=== PATIENT | female | born 1985 | race Caucasian/White ===

== ENCOUNTER 2020-08-08 13:44 | Emergency (ER) | payer SELFPAY ==
[~2020-08-08] VITALS: Ht 162.6 cm; Wt 89.1 kg
[2020-08-08 13:50] VITALS: Ht 162.6 cm; Wt 89.1 kg
[2020-08-08 14:28] LABS: BASOPHILS 0.5 % (0-2); EOSINOPHILS 3.4 % (0-7); HEMATOCRIT 42.3 % (36.0-48.0); HEMOGLOBIN 14.2 g/dL (12-16); IMMATURE GRANULOCYTES 0.2 % (0-5); LYMPHOCYTE ABS# 3.39 10x3/uL (1.18-3.74); LYMPHOCYTES 40.7 % (15-50); MCH 30.2 pg (26.0-34.0); MCHC 33.6 g/dL (31.0-37.0); MEAN PLATELET VOLUME 11.9 fL (7.4-10.4); MONOCYTES 9.5 % (2-11); NEUTROPHIL ABS# 3.81 10x3/uL (1.56-6.13); NEUTROPHILS 45.7 % (40-80); PLATELET COUNT 302 10x3/uL (130-400); RDW 12.7 % (11.5-14.5); WBC 8.3 10x3/uL (4.8-10.8)
[2020-08-08 14:31] LABS: CALC OSMOLALITY 275 mosm/kg (275-300); CALCIUM 8.8 mg/dL (8.5-10.1); CARBON DIOXIDE 24.4 mmol/L (21.0-32.0); CHLORIDE - SERUM 102 mmol/L (98-107); CREATININE - SERUM 0.9 mg/dL (0.6-1.3); GLUCOSE 100 mg/dL (74-106); POTASSIUM - SERUM 3.9 mmol/L (3.5-5.1); SODIUM 138 mmol/L (136-145); UREA NITROGEN 13 mg/dL (7-18); eGFR NON AFRICAN AMERICAN 75 mL/min (90-120)
[2020-08-08 14:35] LABS: INR 1.03 (0.85-1.17); PROTIME 12.5 SECONDS (11.6-15.0)
[2020-08-08 14:36] LABS: APTT 26.2 SECONDS (22.8-39.4)
[2020-08-08] MEDS ORDERED: ZPAK PO (16:38)
[2020-08-08 17:32] VITALS: BP 124/86
== END 2020-08-08 17:41 | disposition home or self-care (01) ==
LOC: D.ER 13:44
PROVIDERS: Emergency Medicine
DX: R04.2 Hemoptysis (principal); J18.9 Pneumonia, unspecified organism; Z72.0 Tobacco use